=== PATIENT | female | born 1985 | race Caucasian/White ===

== ENCOUNTER 2016-10-19 14:34 | Inpatient (IN) | payer OTHER ==
--- NOTE | 2016-10-19 14:39 | EDPHY ---
H & P HPI/ROS: CHIEF COMPLAINT: Overdose HISTORY OF PRESENT ILLNESS: 30 year old female with history of depression arriving via EMS for evaluation of overdose. She sent a text to a co-worker with a photo of multiple pill bottles with the pills laid out in front of them, suggesting she was going to take them. EMS reports she did take many pills, likely trazodone, fluoxetine, and benzonatate, and texted "it's going to be over soon". Melatonin and hydroxyzine were found in the house as well. On EMS arrival, she was obtunded. She was responsive to painful stimuli and able to open her eyes and respond minimally to questions. She vomited once, and the emesis contained pill fragments. EMS was unable to establish IV access. Blood pressure 86/palp. Respiration rate 10. She was placed on an M1 hold by PD. REVIEW OF SYSTEMS: Unobtainable due to altered mental status. Past Medical/Surgical History: Depression Social History: works as an EMT Physical Exam: General Appearance: Lethargic, opens eyes to painful stimuli Eyes: Pupils equal and round, 2mm, no conjunctival pallor or injection ENT, Mouth: Mucous membranes moist, +gag reflex Neck: Normal inspection Respiratory: Lungs are clear to auscultation anteriorly Cardiovascular: Regular rate rhythm Gastrointestinal: Abdomen is soft and non- tender Neurological: Lethargic, opens eyes to painful stimuli, answers some yes no questions, moves all extremities Skin: Warm and dry, no laceration or abrasion Extremities: no pedal edema Psychiatric: Flat affect Constitutional: Initial Vital Signs O2 Sat (%) 100 10/19/16 14:34 O2 Delivery Mode Nasal Cannula O2 (L/minute) 2 Allergies/Adverse Reactions: amoxicillin Allergy (Verified 10/19/16 14:50) cefaclor [From Ceclor] Allergy (Verified 10/19/16 14:50) ceftriaxone Allergy (Verified 10/19/16 14:50) Home Medications: Medication Instructions Recorded Benzonatate [Tessalon Pearles (RX)] 100 mg PO TID PRN 10/19/16 FLUoxetine [Prozac 10 MG (*)] 30 mg PO DAILY 10/19/16 Melatonin [Melatonin 5 mg] 5 mg PO HS PRN 10/19/16 Melatonin/Pyridoxine [MELATONIN 3 1 each PO HS PRN 10/19/16 MG TABLET] hydrOXYzine HCL [Vistaril] 50 mg PO QID PRN 10/19/16 traZODone [traZODONE 50MG (*)] 50 - 100 mg PO HS PRN 10/19/16 Medical Decision Making - Diagnostics EKG Interpretation: EKG interpreted by me reveals sinus bradycardia, rate 53, prolonged QT interval 0.485, no ST or T segment changes. ED Course/Re-evaluation: 14:37 Met EMS at bedside. She has normal respiratory rate and is protecting her airway; no need for respiratory support at this time. 14:39 IV established. Plan for labs including CBC, BMP. Screen for salicylate, EtOH, acetaminophen, tox/drug. Serial exams x3; no change in status. She remains lethargic and is able to wake up appropriately answer questions. Plan to admit to ICU for continued management of overdose and mental health evaluation of suicidal attempt. The poison center was consulted by the ED RN. 15:[address] service[address] Dr[address] Mcfadden accepts admission for overdose. This patient utilized 35 minutes of critical care time exclusive of unbundled procedures. Differential Diagnosis: Altered mental status including but not limited to hypoglycemia, infectious process, electrolyte abnormality, head injury and intoxicants. - Data Points Laboratory Results: Laboratory Results 10/19/16 14:40 10/19/16 14:40 10/19/16 10/19/16 10/19/16 15:00 14:40 14:40 WBC 7.61 10^3/uL 10^3/uL (3.80-9.50) RBC 4.94 10^6/uL 10^6/uL (4.18-5.33) Hgb 14.7 g/dL g/dL (12.6-16.3) Hct 44.7 % % (38.0-47.0) MCV 90.5 fL fL (81.5-99.8) MCH 29.8 pg pg (27.9-34.1) MCHC 32.9 g/dL g/dL (32.4-36.7) RDW 12.8 % % (11.5-15.2) Plt Count 163 10^3/uL 10^3/uL (150-400) MPV 10.4 fL fL (8.7-11.7) Neut % (Auto) 54.9 % % (39.3-74.2) Lymph % (Auto) 35.9 % % (15.0-45.0) [place] % (Auto) 6.4 % % (4.5-13.0) Eos % (Auto) 2.0 % % (0.6-7.6) Baso % (Auto) 0.5 % % (0.3-1.7) Nucleat RBC Rel Count 0.0 % % (0.0-0.2) Absolute Neuts (auto) 4.18 10^3/uL 10^3/uL (1.70-6.50) Absolute Lymphs (auto) 2.73 10^3/uL 10^3/uL (1.00-3.00) Absolute Monos (auto) 0.49 10^3/uL 10^3/uL (0.30-0.80) Absolute Eos (auto) 0.15 10^3/uL 10^3/uL (0.03-0.40) Absolute Basos (auto) 0.04 10^3/uL 10^3/uL (0.02-0.10) Absolute Nucleated RBC 0.00 10^3/uL 10^3/uL (0-0.01) Immature Gran % 0.3 % % (0.0-1.1) Immature Gran # 0.02 10^3/uL 10^3/uL (0.00-0.10) Sodium 140 mEq/L mEq/L (134-144) Potassium 4.5 mEq/L mEq/L (3.5-5.2) Chloride 110 mEq/L mEq/L (97-110) Carbon Dioxide 17 mEq/l L mEq/l (22-31) Anion Gap 13 mEq/L mEq/L (8-16) BUN 24 mg/dL H mg/dL (7-23) Creatinine 0.8 mg/dL mg/dL (0.6-1.0) Estimated GFR > 60 Glucose 136 mg/dL H mg/dL (70-100) Calcium 9.6 mg/dL mg/dL (8.5-10.4) Salicylates < 1.0 mg/dL L mg/dL (2.0-20.0) Urine Opiates Screen NEGATIVE (NEGATIVE) Acetaminophen < 10 mcg/mL L mcg/mL (10.0-30.0) Urine Barbiturates NEGATIVE (NEGATIVE) Ur Phencyclidine Scrn NEGATIVE (NEGATIVE) Ur Amphetamine Screen NEGATIVE (NEGATIVE) U Benzodiazepines Scrn NEGATIVE (NEGATIVE) Urine Cocaine Screen NEGATIVE (NEGATIVE) U Marijuana (THC) Screen NEGATIVE (NEGATIVE) Ethyl Alcohol < 10 mg/dL mg/dL (0-10) Medications Given: Discontinued Medications Sodium Chloride (Ns) 1,000 mls @ 0 mls/hr IV ONCE ONE PRN Reason: Wide Open Stop: 10/19/16 14:46 Last Admin: 10/19/16 14:45 Dose: 1,000 mls Naloxone HCl (Narcan) 0.4 mg IVP EDNOW ONE Stop: 10/19/16 14:46 Last Admin: 10/19/16 14:45 Dose: 0.4 mg Departure - Departure Disposition: [facility] Inpatient Acute Clinical Impression: Overdose Qualifiers: Encounter type: initial encounter Injury intent: intentional self-harm Qualified Code(s): T50.902A - Poisoning by unspecified drugs, medicaments and biological substances, intentional self-harm, initial encounter Condition: Fair Report Scribed for: Felicity Harrison Report Scribed by: Marcelina Cortez Date of Report: 10/19/16 Time of Report: 14:44 Physician Review and Approval Statement: 10/19/16 14:43 Portions of this note were transcribed by a certified medical dosimetrist. I personally performed a history, physical exam, medical decision making, and confirmed accuracy of information the transcribed note.
[2016-10-19] MEDS ORDERED: NALOXONE HCL 2 MG/2 ML SYR IVP ONE (14:41)
--- NOTE | 2016-10-19 14:42 | CPEKG ---
Heart Rate: 53 RR Interval: 1132 P-R Interval: 176 QRSD Interval: 86 QT Interval: 516 QTC Interval: 485 P [place]: 31 QRS [place]: -22 T Wave [place]: 34 EKG Severity - BORDERLINE ECG - EKG Impression: SINUS RHYTHM EKG Impression: BORDERLINE LEFT AXIS DEVIATION EKG Impression: BORDERLINE PROLONGED QT INTERVAL Electronically Signed By: Felicity Harrison 19-Oct-2016 17:50:23
[2016-10-19] MEDS ORDERED: NS 1,000 ML IV ONE (14:45)
[2016-10-19] MEDS ORDERED: NALOXONE HCL 0.4 MG/ML INJ IVP ONE (14:45)
[2016-10-19 14:47] LABS: % IMMATURE GRANULYOCYTES 0.3 % (0.0-1.1); ABSOLUTE IMMATURE GRANULOCYTES 0.02 10^3/uL (0.00-0.10); ADD DIFF? NO; ADD MORPH? NO; ADD SCAN? NO; ATYPICAL LYMPHOCYTE FLAG 20 (0-99); FRAGMENT RBC FLAG 0 (0-99); HEMATOCRIT 44.7 % (38.0-47.0); HEMOGLOBIN 14.7 g/dL (12.6-16.3); LEFT SHIFT FLG 0 (0-99); LIPEMIA HEMOLYSIS FLAG 80 (0-99); MEAN CELL HEMOGLOBIN 29.8 pg (27.9-34.1); MEAN CELL HEMOGLOBIN CONCENTR. 32.9 g/dL (32.4-36.7); MEAN CELL VOLUME 90.5 fL (81.5-99.8); MEAN PLATELET VOLUME 10.4 fL (8.7-11.7); PLATELET CLUMPS FLAG 0 (0-99); PLATELET COUNT 163 10^3/uL (150-400); RED BLOOD CELL COUNT 4.94 10^6/uL (4.18-5.33); RED CELL DISTRIBUTION WIDTH 12.8 % (11.5-15.2)
[2016-10-19 15:06] LABS: ANION GAP 13 mEq/L (8-16); CALCIUM 9.6 mg/dL (8.5-10.4); CARBON DIOXIDE 17 mEq/l (22-31); CHLORIDE 110 mEq/L (97-110); CREATININE 0.8 mg/dL (0.6-1.0); ETHANOL SERUM < 10 mg/dL (0-10); GLOMERULAR FILTRATION RATE > 60; GLUCOSE 136 mg/dL (70-100); POTASSIUM 4.5 mEq/L (3.5-5.2); SALICYLATE < 1.0 mg/dL (2.0-20.0); SODIUM 140 mEq/L (134-144)
--- NOTE | 2016-10-19 17:11 | CPEKG ---
Heart Rate: 63 RR Interval: 952 P-R Interval: 188 QRSD Interval: 82 QT Interval: 476 QTC Interval: 488 P [place]: 62 QRS [place]: -28 T Wave [place]: 34 EKG Severity - BORDERLINE ECG - EKG Impression: SINUS RHYTHM EKG Impression: BORDERLINE LEFT AXIS DEVIATION EKG Impression: BORDERLINE PROLONGED QT INTERVAL EKG Impression: Diffuse ST-T wave abnormalities, without significant change from October 19, 2016, EKG Impression: 14:40 Electronically Signed By: Abdifatah Rosenberg 20-Oct-2016 07:46:22
[2016-10-19] MEDS: NS 1,000 ML IV SCH ×2 (18:16→20:00)
--- NOTE | 2016-10-19 19:13 | GHP ---
[f rep st] HISTORY AND PHYSICAL DATE OF ADMISSION: 10/19/2016 CHIEF COMPLAINT: The patient presents via EMS in a lethargic state after an intentional polysubstance overdose. HISTORY OF PRESENT ILLNESS: The patient is a 30-year-old female, with a history of depression, who presents to the Emergency Department after intentionally overdosing on multiple pills. 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 Her friend is at the bedside, and states that she had also posted on [employer] a [employer] message. When her friend received the text message, she went to the patient's house and they also called 911. It is reported by the ED physician that her Prozac and trazodone bottles were empty. However, upon reviewing her bag of medications, I also note she has an empty bottle of hydroxyzine, an empty bottle of melatonin, as well as an empty bottle of Tessalon. In addition, there is a bag of unmarked pills without a bottle that are an unknown substance. Upon arrival to the Emergency Department, she was obtunded, though responsive to painful stimuli, and opens her eyes on command with minimal responses to questions. She had one episode of vomiting, and there were some pill fragments noted in her emesis. EMS was unable to establish IV access, and her systolic blood pressure in the field was 86, with a respiratory rate of 10. She was placed on an M1 hold, and brought to the Emergency Department. Upon arrival to the Emergency Department, her blood pressure was 89/43, with a heart rate of 59 , respiratory rate of 10. IV access was established, and then she received a liter of normal saline. She was incontinent of urine and stool. She remains obtunded and minimally responsive at the time of my exam. However, she is protecting her airway and breathing 12 respirations per minute. She is admitted to the ICU for further management. PAST MEDICAL HISTORY: Depression. MEDICATIONS: Please see nxtControl for complete updated outpatient medication list. As above, prescription bottles present upon arrival include Prozac, trazodone, hydroxyzine, melatonin, and Tessalon Perles. ALLERGIES: Amoxicillin, cefaclor, and ceftriaxone. FAMILY HISTORY: Unobtainable due to her altered mental status. SOCIAL HISTORY: The patient works as an EMT. One of her colleagues is present at the bedside. Further social history is unobtainable. REVIEW OF SYSTEMS: Unobtainable given her altered mental status. PHYSICAL EXAMINATION: VITAL SIGNS: Temperature is 36.8, blood pressure 98/47, heart rate 74, respiratory rate 12. She is 100% on 2 L of oxygen by nasal cannula. GENERAL: The patient is obtunded, responsive to both verbal and painful stimuli. She is only able to moan answers to questions, though does follow commands. HEENT: Head is atraumatic, normocephalic. Pupils equal, round, and reactive to light. Oropharynx is clear. Mucous membranes are dry. NECK: Supple. There is no JVD. HEART: Regular rate and rhythm without murmur. LUNGS: Clear to auscultation bilaterally. ABDOMEN: Soft, nondistended, nontender with normoactive bowel sounds. EXTREMITIES: Without cyanosis, clubbing, or edema, are warm and well perfused, 2+ peripheral pulses. NEUROLOGIC: She moves all 4 extremities and does follow commands. Her Farhad coma scale is 10. LABORATORY DATA: CBC is completely normal. Basic metabolic panel is remarkable for CO2 of 17, BUN 24, glucose 136. Urine drug screen is negative. Salicylates, acetaminophen, and alcohol are all negative. EKG shows normal sinus rhythm. With normal PVR and QRS intervals. Her QTc is slightly prolonged at 485. She does have an inverted T-wave in lead 3. Otherwise, no ST-segment or T-wave changes concerning for acute ischemia. ASSESSMENT AND PLAN: The patient is a 30-year-old female with history of depression, who presents to the Emergency Department in an obtunded state after an intentional polysubstance overdose. 1. Polysubstance overdose. Based on review of her empty pill bottles, suspected agents involved include Prozac, trazodone, hydroxyzine, Tessalon Perles, and melatonin. She will be admitted to the ICU with cardiac monitoring. Will monitor her QT segment, as SSRIs can cause QT prolongation and increase her risk for cardiac arrhythmia. I will repeat her EKG now to reassess her intervals. She will be placed on seizure precautions. SSRIs, anticholinergics, and Tessalon Perles can all increased the risk for seizures. We will also closely monitor for QRS prolongation given the concern for anticholinergic toxicity. If she is noted to have increased QRS prolongation, we will start her on bicarb. At this time, her QRS segment is normal at 86. Case Management consult is requested. She will need TLC evaluation once medically cleared, as she will likely benefit from inpatient psychiatric stabilization given this serious suicide attempt. Suicide precautions are ordered, and she remains on an M1 hold in the ICU. 2. Metabolic acidosis. This is a non-anion gap acidosis. I suspect starvation ketosis given her presentation. I will check an ABG to assess her pH and pCO2. As above, should she develop QRS prolongation, sodium bicarb would be warranted. For now, we will hydrate her with normal saline and recheck her labs in the morning. 3. Hypotension. She was bolused multiple times due to low uop and was NICOM positive. Now with better uop, but remains hypotensive. She was started on Vasopressin while a central line was placed. Levophed is ordered. Blood cultures sent. Lactate is 0.5. CXR pending after central line placement, she may have aspirated. 4. History of depression. The patient has apparently been taking Prozac. It is unclear whom she may follow with from mental health standpoint. As above, she will need TLC evaluation once medically cleared, and likely transfer to an inpatient psych unit. 5. Code status: The patient is full code. 6. Deep vein thrombosis prophylaxis. The patient is low risk. We will place SCDs. Hopefully she will be able to get up and ambulate tomorrow. DISPOSITION: The patient is admitted to inpatient status. She will likely require greater than 48 hours hospitalization, given her obtunded status requiring ICU care after a polysubstance overdose. /[id number]/MODL MTDD
[2016-10-19 19:54] LABS: CALCULATED OXYGEN SATURATION 99 % (92-95); O2 CONCENTRATIION 28 % (0-100)
[2016-10-19] MEDS: VASOPRESSIN/DEXTROSE 250 ML IV SCH ×2 (21:30→21:32)
--- NOTE | 2016-10-19 22:10 | POSTOPPROG ---
Post Op Note Date of Operation: 10/19/16 Surgeon: Earl Doshi Anesthesia: Local (Specify) (1% lidocaine) Pre-op Diagnosis: inadequate central venous access Post-op Diagnosis: adequate central venous access Indication: inadequate central venous access Procedure: placement of right subclavian central line Findings: inadequate central venous access Inf/Abcess present in the surg proc area at time of surgery?: No Complications: none - Post procedure CXR shows line in good position w/o PTX
[2016-10-19] MEDS ORDERED: ACETAMINOPHEN 650 MG SUPP PR ONE (22:31)
[2016-10-19] MEDS ORDERED: ACETAMINOPHEN 650 MG SUPP PR PRN (23:20)
[2016-10-19] MEDS ORDERED: NS 500 ML IV ONE (23:30)
[2016-10-19] MEDS ORDERED: NS 2,000 ML IV ONE (23:30)
[2016-10-19] MEDS: NOREPINEPHRINE/NS 500 ML IV SCH (23:50)
[2016-10-20 01:43] LABS: COLOR YELLOW; LEUKOCYTE ESTERASE,URINE 1+ (NEGATIVE); NITRITE,URINE NEGATIVE (NEGATIVE)
[2016-10-20 01:52] LABS: ALBUMIN 2.9 g/dL (3.5-5.0); BILIRUBIN,TOTAL 0.7 mg/dL (0.1-1.4); BILIRUBIN-CONJUGATED 0.3 mg/dL (0.0-0.5); BILIRUBIN-UNCONJUGATED 0.4 mg/dL (0.0-1.1)
[2016-10-20 01:54] LABS: MUCUS TRACE /lpf (NONE-1+); RBC,URINE 15-25 /hpf (0-3)
[2016-10-20] MEDS: NS 1,000 ML IV SCH ×2 (02:34→14:59)
[2016-10-20 04:53] LABS: % IMMATURE GRANULYOCYTES 0.2 % (0.0-1.1); ABSOLUTE IMMATURE GRANULOCYTES 0.02 10^3/uL (0.00-0.10); ADD DIFF? NO; ADD MORPH? NO; ADD SCAN? NO; ATYPICAL LYMPHOCYTE FLAG 0 (0-99); FRAGMENT RBC FLAG 0 (0-99); HEMATOCRIT 37.2 % (38.0-47.0); HEMOGLOBIN 11.9 g/dL (12.6-16.3); LEFT SHIFT FLG 0 (0-99); LIPEMIA HEMOLYSIS FLAG 80 (0-99); MEAN CELL HEMOGLOBIN 29.6 pg (27.9-34.1); MEAN CELL VOLUME 92.5 fL (81.5-99.8); MEAN PLATELET VOLUME 10.6 fL (8.7-11.7); PLATELET CLUMPS FLAG 0 (0-99); PLATELET COUNT 141 10^3/uL (150-400); RED BLOOD CELL COUNT 4.02 10^6/uL (4.18-5.33); RED CELL DISTRIBUTION WIDTH 12.9 % (11.5-15.2)
[2016-10-20 05:10] LABS: ANION GAP 8 mEq/L (8-16); CALCIUM 7.5 mg/dL (8.5-10.4); CARBON DIOXIDE 17 mEq/l (22-31); CHLORIDE 117 mEq/L (97-110); CREATININE 0.8 mg/dL (0.6-1.0); GLOMERULAR FILTRATION RATE > 60; GLUCOSE 89 mg/dL (70-100); SODIUM 142 mEq/L (134-144)
[2016-10-20] MEDS: NOREPINEPHRINE/NS 500 ML IV SCH ×3 (06:39→23:10)
--- NOTE | 2016-10-20 12:15 | GOP ---
[f rep st] OPERATIVE REPORT DATE OF OPERATION: 10/19/2016 SURGEON: Earl Doshi MD PREOPERATIVE DIAGNOSIS: Inadequate central venous access. POSTOPERATIVE DIAGNOSIS: Adequate central venous access. PROCEDURE PERFORMED: Placement of a right subclavian triple-lumen catheter. FINDINGS: Dr. Yudith Mcfadden asked me to see the patient for placement of a central line for venous access. HISTORY: This patient is an overdose victim seen in the ICU. Her pressures are low. She needs vasoactive medications, which can be best administered through a central line. DESCRIPTION OF PROCEDURE: The patient was identified. As this is an emergency procedure, a formal time-out and consent were not obtained. The patient was positioned in the steep Trendelenburg position. She has generous distention of her external jugular veins. The right chest was carefully prepped and draped. A sterile field was developed. The skin was anesthetized with 1% Xylocaine. On the first pass, I am able to enter the subclavian vein. A guidewire is passed centrally. The needle was removed over the guidewire. The skin was incised. A dilator was passed over the guidewire. The dilator was now removed. The previously flushed triple-lumen catheter was carefully passed over the guidewire. Note, the blue and white ports have been flushed and have Hep-Lock adapters on them. The central line was passed over the guidewire to the 15 cm alma. The guidewire was removed. Slow venous filling was obtained in the brown port lumen. Hep-Lock adaptor was attached. It was carefully aspirated and flushed with saline. A suture of #3-0 silk was used to suture the line in at the skin level. A second one was used to secure it to the anterior chest wall. A Biopatch was placed. A Tegaderm was placed over it. A chest x-ray was obtained, which shows no evidence of pneumothorax and good central placement of the CVP catheter. /[id number]/MODL MTDD
--- NOTE | 2016-10-20 12:48 | HOSPPROG ---
Hospitalist Progress Note Assessment/Plan: # Acute intentional polysubstance overdose - based on empty bottles we believe it includes prozac, trazadone, hydroxyzine, melatonin and tessalon - pt has prior history of severe depression and attempts - continue M1 hold - cont TELE and supportive care # acute Suicide attempt - will need inpatient psych when medically stable # Acute severe Hypotension - 2/2 overdose - received aggressive fluid resuscitation overnight - still requiring pressor support- TELE (personally reviewed and interpreted) sinus bradycardia - continue to wean pressor support as able # Anemia - Hgb 14-> 11 overnight suspect dilutional - follow CBC in am # acute Leukocytosis - suspect reactive to stress of acute presentation - no fever oxygen saturations 98% on RA - recheck in am # proph - lovenox # diet - NPO as too lethargic 3 dispo- > 2MN as critically ill requiring pressor support and monitoring I have discussed the case with the RN - we will wean pressors as able Subjective: no verballized complaints Objective: Vital Signs Temp Pulse Resp BP Pulse Ox 37.0 C 65 14 108/63 98 10/20/16 12:00 10/20/16 12:00 10/20/16 12:00 10/20/16 12:00 10/20/16 12:00 Laboratory Results 10/20/16 04:40 10/20/16 04:40 10/19/16 10/20/16 10/21/16 05:59 05:59 05:59 Intake Total 8477 Output Total 1265 265 Balance 7212 -265 - Physical Exam Constitutional: appears nourished Eyes: anicteric sclera Ears, Nose, Mouth, Throat: dry mucous membranes Cardiovascular: regular rate and rhythym, bradycardia Respiratory: no respiratory distress Gastrointestinal: normoactive bowel sounds Genitourinary: no bladder fullness Skin: warm, normal color Musculoskeletal: No asymmetric calves Neurologic: No AAOx3 Psychiatric: other (somnolent) Lymph, Heme, Immunologic: no cervical LAD ICD10 Worksheet Patient Problems: Problems Problem Status Onset Overdose Acute
[2016-10-20] MEDS ORDERED: FAMOTIDINE 20 MG/2 ML SDV IVP SCH (13:00)
--- NOTE | 2016-10-20 14:55 | GCON ---
[f rep st] CONSULTATION SENIOR CLINICAL RESEARCH ASSOCIATE CONSULTATION. REASON FOR ADMISSION: Acute poisoning, overdose, suicidal gesture. HISTORY OF PRESENT ILLNESS: The patient is a 30-year-old white female with a past medical history o f depression. She presented via EMS after an intentional polysubstance abuse overdose. Patient is somnolent but arousable. All history is gleaned from the medical record. Apparently, after taking her substances, 5 prescription bottles, she alerted a colleague that she had taken these. EMS was s ubsequently called. She was brought to the emergency room. Upon arrival, she was markedly obtunded . There was some evidence of nausea and vomiting at that time, as well. She was hypotensive and bar bsequently admitted to the intensive care unit. Again, currently she is somnolent but arousable. PAST MEDICAL HISTORY: Significant for depression. ALLERGIES: To amoxicillin, Ceclor, and ceftriaxone. SOCIAL HISTORY: Unknown alcohol abuse. Unknown tobacco use. 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 She has good family support. PHYSICAL EXAMINATION: VITAL SIGNS: Blood pressure 110/68, pulse 55, respirations 18, temperature 3 7.1, oxygen saturation 100% on 2 L. GENERAL: She is a moderately overweight 30-year-old white fema le who is somnolent but resting comfortably. HEENT: Eyes: PERRLA. EOMI. Throat shows no erythem a or tonsillar hypertrophy. NECK: Supple. No cervical adenopathy. HEART: Regular rate and rhyth m without murmurs, rubs, or gallops. LUNGS: Clear to auscultation. No wheeze or rhonchi. ABDOMEN : Soft, nontender. Bowel sounds are present. EXTREMITIES: No clubbing, cyanosis, or edema. LABORATORIES: White count 10.7, hemoglobin 11, hematocrit 37, platelet count is 141. Arterial bloo d gas 7.36, pCO2 of 29, pO2 of 151, bicarb is 16, oxygen saturation 99%. Sodium 142, potassium 4.0, chloride 117, CO2 is 17, BUN 13, creatinine 0.8, glucose is 89. Urinalysis is mostly negative. Ur ine drug screen is negative. IMAGING: Chest x-ray: Central venous catheter in good position; otherwise, clear. IMPRESSION: 1. Acute poisoning/polysubstance abuse. This included Prozac, trazodone, hydroxyzine, Tessalon Per les, and melatonin. 2. Suicidal attempt. 3. Hypotension, currently on pressors. 4. Depression. 5. Mild metabolic acidosis. RECOMMENDATIONS: 1. Wean pressors as tolerated. 2. DVT and PE prophylaxis. 3. Stress ulcer prophylaxis. 4. Close cardiovascular monitoring. 5. We will consult Mental Health once patient is medically cleared. /[id number]/MODL
[2016-10-20] MEDS: FAMOTIDINE 20 MG/NACL 50 ML IV SCH ×2 (14:59→20:02)
[2016-10-20] MEDS: ENOXAPARIN 40 MG/0.4 ML SYR SC SCH ×2 (14:59→15:03)
[2016-10-20] MEDS ORDERED: ACETAMINOPHEN 325 MG TAB PO PRN (16:17)
[2016-10-21 04:09] VITALS: TEMP 98.8
[2016-10-21 06:08] LABS: HEMATOCRIT 37.7 % (38.0-47.0); HEMOGLOBIN 12.1 g/dL (12.6-16.3); MEAN CELL HEMOGLOBIN 29.5 pg (27.9-34.1); MEAN CELL HEMOGLOBIN CONCENTR. 32.1 g/dL (32.4-36.7); RED BLOOD CELL COUNT 4.1 10^6/uL (4.18-5.33); RED CELL DISTRIBUTION WIDTH 12.9 % (11.5-15.2)
[2016-10-21 06:43] LABS: ANION GAP 6 mEq/L (8-16); CALCIUM 7.9 mg/dL (8.5-10.4); CARBON DIOXIDE 20 mEq/l (22-31); CHLORIDE 116 mEq/L (97-110); CREATININE 0.7 mg/dL (0.6-1.0); GLOMERULAR FILTRATION RATE > 60; GLUCOSE 86 mg/dL (70-100); POTASSIUM 3.7 mEq/L (3.5-5.2); SODIUM 142 mEq/L (134-144)
[2016-10-21] MEDS: ENOXAPARIN 40 MG/0.4 ML SYR SC SCH (08:50)
[2016-10-21] MEDS: FAMOTIDINE 20 MG/NACL 50 ML IV SCH (09:59)
--- NOTE | 2016-10-21 16:20 | HOSPPROG ---
Hospitalist Progress Note Assessment/Plan: # Acute intentional polysubstance overdose - based on empty bottles we believe it includes prozac, trazadone, hydroxyzine, melatonin and tessalon - pt has prior history of severe depression and attempts - continue M1 hold - cont TELE and supportive care - plan for inpatient psych dispo # acute Suicide attempt - will need inpatient psych when medically stable # Acute severe Hypotension - 2/2 overdose - received aggressive fluid resuscitation overnight - weaned off pressor support- TELE (personally reviewed and interpreted) sinus bradycardia - continue to monitor # Anemia - Hgb 14-> 11-> 11 overnight suspect dilutional - no need to recheck # acute Leukocytosis - suspect reactive to stress of acute presentation - resolved without tx oxygen saturations 98% on RA # proph - lovenox # diet - regular # dispo- expect to psychiatry inpatient today I have discussed the case with the RN - plan for dispo today Subjective: tolerated breakfast Objective: Vital Signs Temp Pulse Resp BP Pulse Ox 37.1 C 62 12 110/76 94 10/21/16 06:00 10/21/16 10:00 10/21/16 10:00 10/21/16 10:00 10/21/16 10:00 Laboratory Results 10/21/16 05:55 10/21/16 05:55 10/20/16 10/21/16 10/22/16 05:59 05:59 05:59 Intake Total 8477 3386 Output Total 4875 2635 100 Balance 7212 751 -100 ICD10 Worksheet Patient Problems: Problems Problem Status Onset Overdose Acute
[2016-10-21 17:48] VITALS: PULSE 72
[2016-10-21 18:24] VITALS: BP 126/84; RESP 14; O2SAT 94
--- NOTE | 2016-10-22 05:10 | GDS ---
[f rep st] DISCHARGE SUMMARY DISCHARGE DIAGNOSES: 1. Acute suicide attempt. 2. Polysubstance overdose. 3. Severe hypotension requiring pressor support. 4. Anemia. 5. Acute leukocytosis. HISTORY OF PRESENT ILLNESS: A 30-year-old female with a history of depression in the past, who pres ents after an intentional polysubstance overdose using Prozac, trazodone, hydralazine, melatonin, an d Tessalon Perles. For details of patient's initial presentation, please see the history and physic al dated 10/19/2016. CONSULTATIVE SERVICES: Psychiatry. PROCEDURES: On this patient none. HOSPITAL COURSE BY ISSUES: 1. Acute suicide attempt. Patient was placed on an M1 hold, seen by Psychiatry, and will be discha rged to inpatient psychiatry today. 2. Severe hypotension. Patient had extremely low systolic blood pressures. She received aggressiv e fluid resuscitation with 5 L of normal saline and pressor support for approximately 12 hours. She has been weaned off fluids and pressor support and has normal blood pressures on the day of disposi tion. 3. Acute leukocytosis. This resolved without treatment. 4. Anemia. Patient had a drop in her hemoglobin from 14 to 11, which then remained stable after fl uid resuscitation. MEDICATIONS AT THE TIME OF DISPOSITION: Please reference med rec printed on 10/21/2016. FOLLOWUP APPOINTMENTS: Patient will be discharged directly to inpatient Psychiatry. TIME SPENT: I spent greater than 30 minutes in the planning and coordination of this discharge. /[id number]/MODL
== END 2016-10-21 18:40 | DRG 918 ==
LOC: EEVIPCON 15:35 → F2N 16:30
PROVIDERS: ADMIT Hospitalist; ATTEND Hospitalist
PROC: 05H533Z Insertion of Infusion Device into Right Subclavian Vein, Percutaneous Approach (ICD-10-PCS; principal; 2016-10-19)
DX: T43.222A Poisoning by selective serotonin reuptake inhibitors, intentional self-harm, initial encounter (principal); T43.212A Poisoning by selective serotonin and norepinephrine reuptake inhibitors, intentional self-harm, initial encounter; T43.592A Poisoning by other antipsychotics and neuroleptics, intentional self-harm, initial encounter; T48.3X2A Poisoning by antitussives, intentional self-harm, initial encounter; T38.892A Poisoning by other hormones and synthetic substitutes, intentional self-harm, initial encounter; E87.2 Acidosis; I95.9 Hypotension, unspecified; F31.9 Bipolar disorder, unspecified
CPT/HCPCS: 80305; 96374; G0480; J1650; J2310